=== PATIENT | female | born 1970 | race American Indian/Alaskan Native ===

== ENCOUNTER 2022-03-13 09:00 | Outpatient (CLI) | payer MEDICAID ==
[2022-03-13] MEDS ORDERED: SINCALIDE 5 MCG VIAL IV SCH (10:00)
[2022-03-13] MEDS ORDERED: WATER FOR INJ Sterile (PF) 10 ML IV SCH (10:30)
[2022-03-13] MEDS ORDERED: WATER FOR INJ Sterile (PF) 10 ML ONE (10:34)
--- NOTE | 2022-03-13 11:43 | Nuclear Medicine Report ---
NUCLEAR MEDICINE HEPATOBILIARY SCAN INDICATION / CLINICAL INFORMATION: R10.11 RUQ ABDOMINAL PAIN. TECHNIQUE: Radiotracer: Tc-99m mebrofenin (by IV): 5.2 mCi. Gallbladder Stimulant: Cholecystokinin (in mcg by IV): 1.2 COMPARISON: None available. FINDINGS: HEPATIC ACTIVITY: Normal. BILIARY ACTIVITY: Normal. Common bile duct activity at 10 minutes. GALLBLADDER ACTIVITY: Normal at 10 minutes. SMALL BOWEL ACTIVITY: Normal at 30 minutes. GALLBLADDER EJECTION FRACTION % (if calculated): 33 - Normal at 30 min with Cholecystokinin: >35% - Normal at 60 min with Ensure/Glucerna: >33% PATIENT SYMPTOM REPRODUCTION: Concordant symptoms.. IMPRESSION: 1. Biliary obstruction: None. 2. Gallbladder ejection fraction: Below normal. Signer Name: Hay Castro MD Signed: 03/13/2022 11:38 AM Workstation Name: [id number]
== END 2022-03-13 09:01 | disposition home or self-care (01) ==
LOC: NM 09:00
PROVIDERS: ATTEND Nurse Practitioner
DX: R10.11 Right upper quadrant pain (principal)
CPT/HCPCS: 78227; A9537; J2805